=== PATIENT | female | born 1960 | race Caucasian/White ===

== ENCOUNTER 2023-01-12 08:11 | Outpatient (OUT) | payer OTHER, SELFPAY ==
[2023-01-12 09:11] LABS: Estimated Average Glucose 140 mg/dL; Glycohemoglobin A1C 6.5 % (4.5-6.2)
[2023-01-12 09:24] LABS: Anion Gap 10.5; BUN Creatinine Ratio 29.1; Calcium 9.7 mg/dL (8.5-10.1); Chloride 103 mmol/L (98-107); Estimated GFR (African America >60 (>=60); Estimated GFR (Non-African Ame >60 (>=60); Glucose 138 mg/dL (74-106); Potassium 5.5 mmol/L (3.5-5.1); Sodium 137 mmol/L (136-145); Thyroid Stimulating Hormone 10.291 uIU/mL (0.358-3.740)
== END 2023-01-12 08:12 | disposition home or self-care (01) ==
LOC: LAB 08:11
PROVIDERS: PCP Family Medicine; Visit Provider Family Medicine
DX: I10 Essential (primary) hypertension (principal); E11.9 Type 2 diabetes mellitus without complications; E05.00 Thyrotoxicosis with diffuse goiter without thyrotoxic crisis or storm
CPT/HCPCS: 36415; 80048; 83036; 84439; 84443

== ENCOUNTER 2023-05-21 00:53 | Emergency (ER) | payer OTHER, SELFPAY ==
[2023-05-21] VITALS (7 sets, daily range): BP systolic 166–180; BP diastolic 86–100; PULSE 73–111; RESP 13–22; TEMP 36.6; O2SAT 94–97
--- NOTE | 2023-05-21 01:12 | ED.URI1 ---
HPI - URI/Sore Throat General Chief Complaint: Upper Respiratory Infection Stated Complaint: ABD/BACK PAIN flu like symptoms Time Seen by Provider: 05/21/23 01:09 Source: patient Limitations: no limitations History of Present Illness HPI Narrative: patient states she was seen at urgent care this past weekend and diagnosed with Influenza. History of COPD and still smoking. complains of frequent cough that is dry. Her chest is sore from coughing. No fever Related Data Home Medications Medication Instructions Recorded Confirmed albuterol sulfate 2.5 mg/3 mL mg 05/21/23 (0.083 %) solution for nebulization atorvastatin 10 mg tablet mg 05/21/23 budesonide-formoterol HFA 160 inhalation 05/21/23 mcg-4.5 mcg/actuation aerosol inhaler calcium carbonate 500 mg-vitamin tab 05/21/23 D3 5 mcg (200 unit) tablet (Oysco 500/D) doxycycline hyclate 100 mg tablet mg 05/21/23 lisinopril 20 mg tablet mg 05/21/23 metformin 500 mg tablet mg 05/21/23 methimazole 10 mg tablet mg 05/21/23 montelukast 10 mg tablet mg 05/21/23 prednisone 20 mg tablet mg 05/21/23 semaglutide 0.25 mg or 0.5 mg (2 mg subcut 05/21/23 mg/3 mL) subcutaneous pen injector (Ozempic) Allergies Allergy/AdvReac Type Severity Reaction Status Date / Time No Known Drug Allergies Allergy Verified 05/21/23 01:02 Review of Systems ROS Status of ROS 10 or more systems reviewed and unremarkable except as noted in history and below PFSH PFSH Social History Smoking status: Current some day smoker Exam Constitutional Vital Signs, click to edit/add: Last Vital Signs Temp 97.9 F 05/21/23 00:57 Pulse 73 05/21/23 01:43 Resp 20 05/21/23 01:43 BP 166/86 H 05/21/23 01:31 Pulse Ox 97 05/21/23 01:48 O2 Del Method Room Air 05/21/23 01:48 Common normals: no apparent distress, average body habitus, oriented x3, no limitations, healthy appearing, alert and well nourished Eye Common normals: EOMs intact bilaterally and conjunctivae normal Chest Other: inferior chest wall tenderness bilat Respiratory Common normals: normal respiratory effort, no retractions, no use of accessory muscles and clear to auscultation bilaterally Other: diminished breath sounds Cardio Common normals: S1 normal heart sound and S2 normal heart sound Rate: tachycardic GI Common normals: Normal to inspection, nondistended, normoactive bowel sounds present, soft to palpation and non-tender Extremity Common normals: normal to inspection and full ROM Neuro Common normals: oriented x3, moves all extremities, no focal motor deficits and no sensory deficits noted Psych Appearance: grossly normal Course Vital Signs Vital signs: Vital Signs Temperature 97.9 F 05/21/23 00:57 Pulse Rate 111 H 05/21/23 00:57 Respiratory Rate 22 05/21/23 00:57 Blood Pressure 180/100 H 05/21/23 00:57 Pulse Oximetry 95 05/21/23 00:57 Oxygen Delivery Method Room Air 05/21/23 00:57 Temperature 97.9 F 05/21/23 00:57 Pulse Rate 73 05/21/23 01:43 Respiratory Rate 20 05/21/23 01:43 Blood Pressure 166/86 H 05/21/23 01:31 Pulse Oximetry 97 05/21/23 01:48 Oxygen Delivery Method Room Air 05/21/23 01:48 MDM - URI/Sore Throat MDM Narrative Medical decision making narrative: history of COPD diagnosed with influenza yesterday. Presents with repetitive cough and chest pain. chest pain worse with deep breath and with cough. Chest wall tender reproducing pain. cxray clear. labs neg. Patient improved after solumedrol, duoneb and [place]. discharged home in improved condition Lab Data Labs: Lab Results 05/21/23 Range/Units 01:05 WBC 9.7 (4.0-11.0) 10^3/uL RBC 4.24 (4.20-5.40) 10^6/uL Hgb 13.3 (12.0-16.0) g/dL Hct 41.1 (36.0-48.0) % MCV 96.9 (81.0-99.0) fL MCH 31.4 (26.7-34.0) pg MCHC 32.4 (29.9-35.2) g/dL RDW 12.4 (11.0-15.0) % Plt Count 225 (150-450) 10^3/uL MPV 10.0 (9.5-13.5) fL Neut % (Auto) 78.1 H (43.0-75.0) % Lymph % (Auto) 12.9 L (20.5-60.0) % [place] % (Auto) 8.3 (1.7-12.0) % Eos % (Auto) 0.0 L (0.9-7.0) % Baso % (Auto) 0.2 (0.2-2.0) % Neut # (Auto) 7.6 H (1.4-6.5) 10^3/uL Lymph # (Auto) 1.3 (1.2-3.8) 10^3/uL [place] # (Auto) 0.8 (0.3-0.8) 10^3/uL Eos # (Auto) 0.0 (0.0-0.7) 10^3/uL Baso # (Auto) 0.0 (0.0-0.1) 10^3/uL Abs Immat Gran (auto) 0.05 H (0.00-0.03) 10^3/uL Imm/Tot Granulo (auto) 0.5 (0.0-0.5) % Sodium 141 (136-145) mmol/L Potassium 4.4 (3.5-5.1) mmol/L Chloride 104 (98-107) mmol/L Carbon Dioxide 29.7 (21.0-32.0) mmol/L Anion Gap 11.7 BUN 20.0 H (7.0-18.0) mg/dL Creatinine 0.92 (0.55-1.02) mg/dL Est GFR ( Amer) >60 (>=60) Est GFR (Non-Af Amer) >60 (>=60) BUN/Creatinine Ratio 21.7 Glucose 169 H (74-106) mg/dL Calcium 9.4 (8.5-10.1) mg/dL Troponin I High Sens 14.2 (4.0-51.3) pg/mL Imaging Data Chest x-ray: Radiologist's impression: ITS Impressions Chest X-Ray 05/21/23 01:15 IMPRESSION: Lungs are clear. No acute cardiopulmonary disease. Electronically authenticated by: VANNA HENNESSY Date: 05/21/2023 03:54 Discharge Plan Discharge Chief Complaint: Upper Respiratory Infection Clinical Impression: Chest wall pain, Influenza Patient Disposition: Home, Self-Care Prescriptions / Home Meds: No Action metformin 500 mg tablet albuterol sulfate 2.5 mg /3 mL (0.083 %) solution for nebulization atorvastatin 10 mg tablet lisinopril 20 mg tablet prednisone 20 mg tablet montelukast 10 mg tablet methimazole 10 mg tablet doxycycline hyclate 100 mg tablet calcium carbonate-vitamin D3 [Oysco 500/D] 500 mg-5 mcg (200 unit) tablet budesonide-formoterol 160-4.5 mcg/actuation HFA aerosol inhaler INHALATION Ozempic 0.25 mg or 0.5 mg (2 mg/3 mL) pen injector SUBCUT Instructions: Influenza (DC), Chest Wall Pain (ED) Stand Alone Forms: Portal Instructions Referrals: EVANGELIST SALEEM [Primary Care Provider] - 1 week
--- NOTE | 2023-05-21 01:15 | ECG_ITS ---
The [facility] Test Date: 2023-05-21 Pat Name: MIKI GARCIA Department: Room: - Gender: Female [employer]: : 1960 Requested By: EVANGELIST SALEEM Order Number: [id number] Reading MD: RADHA RILEY Measurements Intervals [place] Rate: 81 P: 90 MD: 122 QRS: 80 QRSD: 80 T: 76 QT: 356 QTc: 394 Interpretive Statements 1100 Sinus rhythm 9110 normal ECG Compared to ECG 01/15/2021 10:22:37 No significant changes Electronically Signed On 05-21-2023 6:55:28 EST by RADHA RILEY
--- NOTE | 2023-05-21 01:15 | XR_ITS ---
The [address] [address] Patient Name: MIKI GARCIA MRN: [id number] date: 1960 Sex: F Assigned Patient Location: ER Current Patient Location: ED.MAIN Accession/Order Number: [id number] Exam Date: 05/21/2023 01:30 Report Date: 05/21/2023 03:54 At the request of: MELITA SORENSON Procedure: XR chest 1V EXAMINATION: XR chest 1V HISTORY: cough COMPARISON: None. FINDINGS: There is no focal airspace consolidation. There is no appreciable pneumothorax or pleural effusion. The pulmonary vascularity is within normal limits for technique. The cardiomediastinal silhouette is within normal limits. XR/XR chest 1V IMPRESSION: Lungs are clear. No acute cardiopulmonary disease. Electronically authenticated by: VANNA HENNESSY Date: 05/21/2023 03:54
[2023-05-21 01:21] LABS: Basophils Percent Auto 0.2 % (0.2-2.0); Hematocrit 41.1 % (36.0-48.0); Hemoglobin 13.3 g/dL (12.0-16.0); Immature Granulocytes Abs Auto 0.05 10^3/uL (0.00-0.03); Immature Granulocytes Pct Auto 0.5 % (0.0-0.5); Lymphocytes Absolute Auto 1.3 10^3/uL (1.2-3.8); Lymphocytes Percent Auto 12.9 % (20.5-60.0); Mean Corpuscular HGB Conc 32.4 g/dL (29.9-35.2); Mean Corpuscular Hemoglobin 31.4 pg (26.7-34.0); Mean Corpuscular Volume 96.9 fL (81.0-99.0); Monocytes Absolute Auto 0.8 10^3/uL (0.3-0.8); Monocytes Percent Auto 8.3 % (1.7-12.0); Neutrophils Absolute Auto 7.6 10^3/uL (1.4-6.5); Neutrophils Percent Auto 78.1 % (43.0-75.0); Platelet Count 225 10^3/uL (150-450); Red Blood Count 4.24 10^6/uL (4.20-5.40); Red Cell Distribution Width 12.4 % (11.0-15.0); White Blood Count 9.7 10^3/uL (4.0-11.0)
[2023-05-21] MEDS: METHYLPREDNISOLONE SOD SUCC PF 125 MG/2 ML VIAL IVP (01:27)
[2023-05-21] MEDS: KETOROLAC TROMETHAMINE 30 MG/ML VIAL IVP (01:28)
[2023-05-21 01:40] LABS: Anion Gap 11.7; BUN Creatinine Ratio 21.7; Calcium 9.4 mg/dL (8.5-10.1); Carbon Dioxide 29.7 mmol/L (21.0-32.0); Chloride 104 mmol/L (98-107); Estimated GFR (African America >60 (>=60); Estimated GFR (Non-African Ame >60 (>=60); Glucose 169 mg/dL (74-106); Potassium 4.4 mmol/L (3.5-5.1); Sodium 141 mmol/L (136-145); Troponin I High Sensitivity 14.2 pg/mL (4.0-51.3)
[2023-05-21] MEDS: IPRATROPIUM/ALBUTEROL SULFATE 3 ML AMPUL.NEB IH (01:43)
--- NOTE | 2023-05-21 02:05 | PC.NURSE ---
pt states toradol did not help pain, continues to cough which is making her almost throw up . Afia and asim ordered per dr domingo
[2023-05-21] MEDS: ONDANSETRON PF 4 MG/2 ML VIAL IV (02:14)
[2023-05-21] MEDS: HYDROCODONE/ACET 5-325 MG TABLET 1 TAB PO (02:14)
--- NOTE | 2023-05-21 03:18 | PC.NURSE ---
Still waiting on chest xray results, pt aware and verbalized understanding. Pt states she is feeling better, coughing less at this time.
--- NOTE | 2023-05-21 04:13 | PC.NURSE ---
Discussed discharge paperwork with pt. All questions answered. Script and work note provided. Pt ambulated off unit in stable condition.
== END 2023-05-21 04:14 | disposition home or self-care (01) ==
PROVIDERS: Emergency Provider Internal Medicine; PCP Family Medicine
DX: R07.89 Other chest pain (principal); J11.1 Influenza due to unidentified influenza virus with other respiratory manifestations; J44.9 Chronic obstructive pulmonary disease, unspecified; F17.210 Nicotine dependence, cigarettes, uncomplicated; Z79.899 Other long term (current) drug therapy; Z79.84 Long term (current) use of oral hypoglycemic drugs
CPT/HCPCS: 36415; 71045; 80048; 84484; 85025; 93005; 94640; 96374; 96375; 99285; J1885; J2405; J2930

== ENCOUNTER 2024-05-05 09:29 | Emergency (ER) | payer OTHER, SELFPAY ==
[2024-05-05] VITALS (17 sets, daily range): BP systolic 138–166; BP diastolic 86–98; PULSE 81–103; TEMP 36.5; O2SAT 93–97; BMI 27.4
[2024-05-05 09:38] LABS: Glucometer 395 mg/dL (74-106)
--- NOTE | 2024-05-05 09:48 | XR_ITS ---
The [address] [address] Patient Name: MIKI GARCIA MRN: [id number] date: 1960 Sex: F Assigned Patient Location: ER Current Patient Location: ER Accession/Order Number: [id number] Exam Date: 05/05/2024 10:15 Report Date: 05/05/2024 10:58 At the request of: ALMA MEADE Procedure: XR chest 2V EXAMINATION: XR chest 2V HISTORY: cough COMPARISON: XR chest 05/21/2023 FINDINGS: LUNGS: No significant pulmonary parenchymal abnormalities. VASCULATURE: No increased pulmonary vasculature. PLEURA: No pneumothorax, effusion, or pleural thickening. CARDIAC: No cardiomegaly or cardiac silhouette abnormality. MEDIASTINUM: No visible mass or adenopathy. BONES: No fracture or visible bone lesion. OTHER: Negative. XR/XR chest 2V IMPRESSION: 1. No acute cardiopulmonary process. Electronically authenticated by: LIMA TAMEZ Date: 05/05/2024 10:58
--- NOTE | 2024-05-05 09:50 | ED_ITS ---
HPI HPI - General Adult General Chief complaint: Upper Respiratory Infection Stated complaint: HYPERGLYCEMIA Time Seen by Provider: 05/05/24 09:30 Source: patient Mode of arrival: walk-in History of Present Illness HPI narrative: Patient presented to the emergency department for not feeling well she has been sick with an upper respiratory infection. Has had cough, nasal congestion, rhinorrhea, sore throat, hoarse voice. She states she has been trying to fight through it. Has diabetes, takes metformin, checks her blood sugars daily. Woke up this morning and it was 595. She went to urgent care for her after respiratory infection, but because her blood sugar was 500 there they sent her here. It was checked here in the ER and is currently 395. Patient has no complaints of chest pain, shortness of breath, blurry vision, double vision, urgency, increasing urinary frequency. No other complaints at this time Related Data Home Medications ?Medication ?Instructions ?Recorded ?Confirmed albuterol sulfate 2.5 mg/3 mL 2.5 mg inhalation Q4H PRN 05/21/23 05/05/24 (0.083 %) solution for nebulization shortness of breath or wheezing atorvastatin 10 mg tablet 10 mg PO DAILY 05/21/23 05/05/24 budesonide-formoterol HFA 160 inhalation 05/21/23 mcg-4.5 mcg/actuation aerosol inhaler calcium 500 mg (as 1 tab PO DAILY 05/21/23 05/05/24 carbonate)-vitamin D3 5 mcg (200 unit) tablet (Oysco 500/D) methimazole 10 mg tablet 10 mg PO DAILY 05/21/23 05/05/24 montelukast 10 mg tablet 10 mg PO DAILY 05/21/23 05/05/24 dapagliflozin propanediol 10 mg 10 mg PO DAILY 05/05/24 05/05/24 tablet fluticasone fur. 200 mcg-umeclid 1 inh inhalation QAM 05/05/24 05/05/24 62.5 mcg-vilant 25 mcg inhalat.powder (Trelegy Ellipta) lisinopril 40 mg tablet 40 mg PO DAILY 05/05/24 05/05/24 metformin 500 mg tablet,extended 500 mg PO BID 05/05/24 05/05/24 release 24 hr pantoprazole 40 mg tablet,delayed 40 mg PO DAILY 05/05/24 05/05/24 release Allergies Allergy/AdvReac Type Severity Reaction Status Date / Time No Known Drug Allergies Allergy Verified 05/21/23 01:02 Opioid HPI Opioid Management Most Recent Opioid Data: Last Pain Scale 10 05/21/23 01:28 05/21/23 Review of Systems ROS Narrative Negative unless otherwise stated in the HPI [facility] Medical History (Updated 05/05/24 @ 12:04 by Reddy Castro MD) High cholesterol ?E78.00 - Pure hypercholesterolemia, unspecified (ICD-10) HTN (hypertension) ?I10 - Essential (primary) hypertension (ICD-10) Smoker ?F17.200 - Nicotine dependence, unspecified, uncomplicated (ICD-10) COPD (chronic obstructive pulmonary disease) ?J44.9 - Chronic obstructive pulmonary disease, unspecified (ICD-10) Diabetic acetonemia ?E10.10 - Type 1 diabetes mellitus with ketoacidosis without coma (ICD-10) Social History Smoking status: Current some day smoker Little interest or pleasure in doing things: not at all Feeling down, depressed, or hopeless: not at all Exam Narrative Exam Narrative: General: NAD, AAOx3, no distress Eyes: PERRL, EOMI, lids/conjunctiva normal. HEENT: NCAT, mmm, rhinorrhea with nasal mucosal edema was noted, hoarse voice was noted Neck: Supple, no drooling, no bruit, no lymphadenopathy Respiratory: respiratory effort normal, speaks in full sentences, no tripod position, no accessory muscle use. Lungs clear to auscultation without rhonchi, wheezes, rales Cardiac: Regular rate and rhythm, no edema, regular s1/s2, no m/g/r Skin: Warm, pink and dry Constitutional Vital Signs, click to edit/add: Last Vital Signs Temp 97.7 F 05/05/24 09:32 Pulse 81 05/05/24 11:27 Resp 16 05/05/24 11:27 BP 166/98 H 05/05/24 09:32 Pulse Ox 96 05/05/24 11:27 O2 Del Method Room Air 05/05/24 11:27 Course Vital Signs Vital signs: Vital Signs Temperature 97.7 F 05/05/24 09:32 Pulse Rate 103 H 05/05/24 09:32 Respiratory Rate 22 H 05/05/24 09:32 Blood Pressure 166/98 H 05/05/24 09:32 Pulse Oximetry 95 05/05/24 09:32 Oxygen Delivery Method Room Air 05/05/24 09:32 Temperature 97.7 F 05/05/24 09:32 Pulse Rate 81 05/05/24 11:27 Respiratory Rate 16 05/05/24 11:27 Blood Pressure 166/98 H 05/05/24 09:32 Pulse Oximetry 96 05/05/24 11:27 Oxygen Delivery Method Room Air 05/05/24 11:27 Medical Decision Making MDM Narrative Medical decision making narrative: [facility] Patient with history as above presented with upper respiratory infection, hyper glycemia. History obtained from patient. Patient was nontoxic, stable. Ambulatory. Exam as above. Independently reviewed imaging. Reviewed external records. Differential diagnosis considered. Overall presentation is consistent with glycemia, URI, viral Patient presenting to the emergency department for above-stated complaint. Patient states she incidentally noted that her blood sugar was 600. Had no chest pain, shortness of breath, nausea, vomiting. No recent illnesses other than the viral URI. No recent steroid usage. Blood sugar in the ED was 395, came down to 350. Patient has no signs or symptoms of hyperglycemia, DKA. Is on metformin. Discussed patient she should call her PCP, may potentially increase metformin medication, may need to be on insulin at some point. As for her other illnesses, chest x-ray and swab were negative. It was noted while she was here she did require breathing treatment. Will hold steroids. Given the hyperglycemia. Patient has COPD, states that she takes breathing treatments multiple times daily at home, has enough medications and refill. Pt who presented to the ER today for URI symptoms. Patient on exam was well appearing and non toxic appearing. Vitals were reviewed. Patient has no symptoms of otitis media, pneumonia, bacterial pharyngitis or other serious bacterial illness. Respiratory status is unremarkable. At this point in time, patient likely has viral syndrome with no indications for antibiotics. I have recommended fluids and motrin for symptomatic control. Close follow up with PCP. Advanced guidance has been given. Vss, pex is benign at this time. Pt to fu with pcp 1-2 days for reeval, rter should sx worsen, persist or become worrysome in any way. Pt expressed understanding and agreement with plan of care at this time. Will fu as planned. Pt stable for discharge. Lab Data Labs: Lab Results 05/05/24 05/05/24 05/05/24 Range/Units 09:37 09:59 11:15 Influenza Type A Ag Negative Influenza Type B Ag Negative RSV Antigen Not detected (NOT DETECTE) SARS-CoV-2 Ag (CV2AG) Negative (NEGATIVE) POC Glucose 395 H 359 H (74-106) mg/dL Discharge Plan Discharge Chief Complaint: Upper Respiratory Infection Clinical Impression: Upper respiratory infection Patient Disposition: Home, Self-Care Time of Disposition Decision: 12:03 Prescriptions / Home Meds: No Action albuterol sulfate 2.5 mg /3 mL (0.083 %) solution for nebulization 2.5 mg inhalation Q4H PRN (Reason: shortness of breath or wheezing) atorvastatin 10 mg tablet 10 mg PO DAILY montelukast 10 mg tablet 10 mg PO DAILY methimazole 10 mg tablet 10 mg PO DAILY calcium carbonate-vitamin D3 [Oysco 500/D] 500 mg-5 mcg (200 unit) tablet 1 tab PO DAILY budesonide-formoterol 160-4.5 mcg/actuation HFA aerosol inhaler INHALATION dapagliflozin propanediol 10 mg tablet 10 mg PO DAILY Trelegy Ellipta 200-62.5-25 mcg blister with device 1 inh INHALATION QAM lisinopril 40 mg tablet 40 mg PO DAILY metformin 500 mg tablet extended release 24 hr 500 mg PO BID pantoprazole 40 mg tablet,delayed release (DR/EC) 40 mg PO DAILY Print Language: Romansh Instructions: Upper Respiratory Infection (DC) Additional Instructions: Follow-up with your PCP in the next 1 to 2 days. Return to the emergency department should symptoms worsen or become worrisome in any way. Referrals: EVANGELIST SALEEM [Primary Care Provider] - 1 week
[2024-05-05] MEDS: 0.9 % SODIUM CHLORIDE 1,000 ML 1000 ML IV (10:08)
[2024-05-05 10:19] LABS: Influenza Virus A Antigen Negative; Influenza Virus B Antigen Negative; Internal Control Within Normal Limits; SARS-CoV-2 Ag NEGATIVE (NEGATIVE)
[2024-05-05 10:53] LABS: Internal Control Within Normal Limits; Respiratory Syncytial Virus Not Detected (NOT DETECTE)
[2024-05-05 11:17] LABS: Glucometer 359 mg/dL (74-106)
[2024-05-05] MEDS: ALBUTEROL SULFATE 2.5 MG/3 ML VIAL NEB IH (11:26)
== END 2024-05-05 12:20 | disposition home or self-care (01) ==
PROVIDERS: Emergency Provider Emergency Medicine; PCP Family Medicine
DX: J06.9 Acute upper respiratory infection, unspecified (principal); E11.65 Type 2 diabetes mellitus with hyperglycemia; Z79.84 Long term (current) use of oral hypoglycemic drugs; F17.200 Nicotine dependence, unspecified, uncomplicated; J44.9 Chronic obstructive pulmonary disease, unspecified
CPT/HCPCS: 36415; 71046; 82948; 87420; 87804; 87811; 94640; 99284

== ENCOUNTER 2025-04-15 10:03 | Emergency (ER) | payer OTHER, SELFPAY ==
[2025-04-15 10:20] VITALS: BP 145/109; PULSE 92; TEMP 37.3; O2SAT 98; BMI 27.4
--- OUTSIDE RECORDS SUMMARY | 2025-04-15 11:42 | XMS_ITS | Encounter Summary ---
Author Organization [facility] [employer] Address [facility] [place]-[id number] [address] [place] [address] Care Team Providers Care Software Test Technician Name Role Phone Arielle Dickens OFFICE MESSENGER HELPER-MANAGER MARKET DEVELOPMENT Primary Care Provider + Reason for Visit * ReasonCommentsMed Refill Encounter Details DateTypeDepartmentCare Team (Latest Contact Info)Hcbzdxlfmax85/05/2025Refill [facility] [address] [place] [address] Arielle Dickens, OFFICE MESSENGER HELPER-MANAGER MARK[employer] DEVELOPMENT [address] [place] [address] Degeneration of intervertebral disc of lumbar region with lower extremity pain Social History Tobacco UseTypesPacks/DayYears UsedDateSmoking Tobacco: Every CxdAdjxfgfuxy212.8 Started: 05/12/1987; Last attempted to quit: 03/29/2024Smokeless Tobacco: Never Comments:Is down to 1/2 PPD since 06/2022 but smoked 1.5 PPD for years Alcohol UseStandard Drinks/WeekCommentsYes0 (1 standard drink = 0.6 oz pure alcohol)OccasionalAHC UtilitiesAnswerDate RecordedIn the past 12 months has the electric, gas, oil, or water company threatened to shut off services in your home?No06/02/2024Social Connection and Isolation PanelAnswerDate RecordedIn a typical week, how many times do you talk on the phone with family, friends, or neighbors?More than three times a week01/24/2023How often do you get together with friends or relatives?Twice a week01/24/2023How often do you attend islam or episcopalian services?Never01/24/2023o you belong to any clubs or organizations such as islam groups, unions, fraternal or athletic groups, or school groups?No 01/24/2023How often do you attend meetings of the clubs or organizations you belong to?Never01/24/2023re you , , , , never , or living with a partner?Gnlaner1001/24/2023UDIT-CAnswerDate RecordedQ1: How often do you have a drink containing alcohol?2-4 times a month06/02/2024Q2: How many drinks containing alcohol do you have on a typical day when you are drinking?3 or Q3: How often do you have six or more drinks on one occasion?Never06/02/2024Overall Financial Resource Strain (CARDIA)AnswerDate RecordedHow hard is it for you to pay for the very basics like food, housing, medical care, and heating?Not hard at all01/24/2023HQ-2AnswerDate RecordedTotal [facility]ajjs575[facility] - Occupational Stress QuestionnaireAnswerDate RecordedDo you feel stress - tense, restless, nervous, or anxious, or unable to sleep at night because yourmind is troubled all the time - these days?Not at all01/24/2023Exercise Vital SignAnswerDate RecordedOn average, how many days per week do you engage in moderate to strenuous exercise (like a brisk walk)?4 days01/24/2023On average, how many minutes do you engage in exercise at this level?60 min01/24/2023RAPARE - TransportationAnswerDate RecordedIn the past 12 months, has lack of transportation kept you from medical appointments or from getting medications?No01/24/2023In the past 12 months, has lack of transportation kept you from meetings, work, or from getting things needed for daily living?01/24/2023Housing InstabilityAnswerDate RecordedAre you worried or concerned that in the next two months you may not have stable housing that you own, rent or stay in as a part of a household?No01/24/2023 ChildcareAnswerDate RecordedDo problems getting childcare center director make it 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 work or study?No01/24/2023EmploymentAnswerDate RecordedDo you need help finding a local career center and/or a training program?No01/24/2023Hunger ScreeningAnswerDate RecordedWithin the past 12 months we worried whether our food would run out before we got money to buy more.Never True02/11/2025Within the past 12 months the food we bought just didn't last and we didn't have money to get more.Never True02/11/2025Purpose - LifeAnswerDate RecordedI have a purpose and direction in my life.Strongly Agree01/24/2023CommentsNoSex and Gender InformationValueDate RecordedSex Assigned at BirthNot on fileLegal VcyCwqyyr78/06/2015 11:50 AM EDTGender IdentityNot on fileSexual OrientationNot on filedocumented as of this encounter Plan of Treatment DateTypeDepartmentCare Team (Latest Contact Info)Cuqrhqpyhuk44/22/2025 1:45 PM ESTOffice Visit [facility] [address] [place] [address] Inder Frankel, [address] [facility] [place] [address] documented as of this encounter Visit Diagnoses Diagnosis Degeneration of intervertebral disc of lumbar region with lower extremity pain documented in this encounter Additional Health Concerns AssessmentNoted TimePHQ-9 Depression Total Score: 11:45 AM EDTA Body Mass Index follow-up plan has been documented for the sekrgup1110/22/2024 4:47 PM EDTdocumented as of this encounter Care Teams Team MemberRelationshipSpecialtyStart DateEnd Date Arielle Dickens, OFFICE MESSENGER HELPER-MANAGER MARKET DEVELOPMENT [address] [facility] [place] [address] PCP - GeneralFamily Medicine12/14/24documented as of this encounter
--- OUTSIDE RECORDS SUMMARY | 2025-04-15 11:42 | XMS_ITS | Clinical Summary ---
Author Organization [facility] Address [address] [place] [address] Care Team Providers Care Orthodontist Name Role Phone Chino Phillips MD Primary Care Provider [phone] Maria Del Rosario Johnson MD Unavailable [phone] Allergies No known active allergies Medications MedicationSigDispense QuantityRefillsLast FilledStart DateEnd DateStatus Trelegy Ellipta 200-62.5-25 MCG/ACT aerosol powder Active escitalopram (Lexapro) 10 MG tablet 1 (one) time each day at the same timeActive hydroCHLOROthiazide (HYDRODiuril) 25 MG tablet 1 (one) time each day at the same timeActive Insulin Glargine Max SoloStar 300 UNIT/ML solution pen-injector Inject 20 Units under the skin at /07/2025Active Easy Touch Pen [place] 31G X 6 MM misc 5Active levothyroxine (Synthroid, Levoxyl) 25 MCG tablet 1 (one) time each day at the same timeActive lisinopril 40 MG tablet Take 40 mg by mouth4Active metFORMIN (Glucophage) 500 MG tablet Take 500 mg by mouth 1 (one) time each day at the same time 2 TABS IN THE AM Active montelukast (Singulair) 10 MG tablet Take 10 mg by mouth in the morning.4Active nicotine (Nicotine Step 2) 14 MG/24HR patch 1 (one) time each day at the same timeActive pantoprazole (ProtoNix) 40 MG EC tablet Take 40 mg by mouth in the morning.4Active famotidine (Pepcid) 20 MG tablet Indications:LPRD (laryngopharyngeal reflux disease)Take 1 tablet (20 mg) by mouth at bedtime 90 tablet 5Active gabapentin (Neurontin) 300 MG capsule Take 300 mg by mouth as needed at rqwiags30/03/2025Active dapagliflozin (Farxiga) 10 MG Take 10 mg by mouth DailyActive atorvastatin (Lipitor) 10 MG tablet Take 10 mg by mouth DailyActive Active Problems ProblemNoted DateDiagnosed DateAcquired dedilicluuimuk42/17/2025ilateral xbveekgx90/17/2025Infection of parotid gland06/15/2024Laryngopharyngeal reflux (LPR)06/15/2024Multinodular eneulu7506/15/2024Sensorineural hearing loss, gghrthoep66/17/2025Sensorineural hearing loss, unilateral, right ear, with unrestricted hearing on the contralateral side06/15/2024Mixed simple and mucopurulent chronic quhyoxlenz74/30/2022olyp of sigmoid colon01/31/2022 Abnormal liver function tests01/25/2022bnormal stool test01/25/2022 Overview (06/15/2024): Cologard positive Degeneration of lumbar intervertebral disc01/25/2022Graves' hthtuyr2001/25/2022 Nicotine mbnpmghujk29/29/2022Urinary nqvslwukecen75/29/2022hronic antral jbvvoeiif51/11/5751Rjhhnjidzp12/11/2019Chronic gastroesophageal reflux disease 12/26/2018Mild nonproliferative diabetic ijlwoyvaxxp11/11/2017Chronic airway egfpbyciooy14/12/2014Essential bvrbzuhrugby18/12/3602Nzoquvfupvlrse42/12/2014 Type 2 diabetes fvzjtrxu42/12/2014 Encounters DateTypeDepartmentCare NcziOjqloggecli30/20/2025Orders Only [facility] [address] [place] [address] Maria Del Rosario Johnson MD from Last 3 Months Immunizations ImmunizationAdministration DatesNext VooUPbH39/07/2013Influenza, injectable, quadrivalent, preservative free02/28/2016Influenza, seasonal, injectable 01/27/2015Influenza, seasonal, injectable, preservative free01/17/2024 Pneumococcal Conjugate PCV 131Pneumococcal Conjugate PCV Pneumococcal Polysaccharide OKJW0645 Family History Medical HistoryRelationNameCommentsThyroid diseaseDaughterx 2AsthmaFather DiabetesFatherProstate cancerFatherRelationNameStatusCommentsBrotherx 1Deceased Daughterx 2AliveFatherAliveMotherDeceasedSisterx 1Deceased Social History Tobacco UseTypesPacks/DayYears UsedDateSmoking Tobacco: Every DayCigarettes Smokeless Tobacco: Never Tobacco Cessation:Ready to Q uit: Not Asked; Counseling Given: Not Answered Alcohol UseStandard Drinks/WeekCommentsYes0 (1 standard drink = 0.6 oz pure alcohol)OccCommentsUnknownSex and Gender InformationValueDate Recorded Sex Assigned at BirthNot on fileLegal EyiAimiij87/15/2023 7:00 PM EDTGender IdentityNot on fileSexual OrientationNot on file Last Filed Vital Signs Vital SignReadingTime TakenCommentsBlood Khbspgtw150/7004 1:20 PM EDT Mcsid1188 1:20 PM EDTTemperature--Respiratory Qahr733108/19/2024 1:20 PM EDTOxygen Ewisdgckvn57%08/19/2024 1:20 PM EDTInhaled Oxygen Concentration-- Sxfyzz66.8 kg (156 lb)09/28/2024 1:39 PM OTVLiavuy022.5 cm (5' 2 )09/28/2024 1:39 PM EDTBody Mass Index28.53009/28/2024 1:39 PM EDT Plan of Treatment DateTypeDepartmentCare Team (Latest Contact Info)Junrrpbpjyj42/22/2026 1:30 PM ESTOffice Visit [facility] [address] [place] [address] Maria Del Rosario Johnson MD [address] [place] [address] Health MaintenanceDue DateLast DoneCommentsCT Emsgfeperdye47/24/1962Colonoscopy 2Colorectal Cancer Mnlpbjcsm14/24/1962FIT-DNA1961FIT1961 FOBT1961 0298Ammelqwkvhohz20/24/1962Diabetes: Retinopathy Tyjkditta16/24/1972 Pap Smear1982Cervical Cancer Djdpdryji75/24/1992HPV/Qknhlb8210/21/1991 Diabetes: Hemoglobin A1C504/, 01/03/2024OVID-19 Vaccine ( season), 12/28/2020Influenza Vaccine (#1)2024 01/17/2024, 02/28/2016, 01/27/2015Diabetes: Urine Protein Gmsnorizk74/26/2025 04/23/2024, 04/23/2024, 01/24/20234621Prixgtctu19Pneumococcal Vaccine: Pediatrics (0 to 5 Years) and At-Risk Patients (6 to 64 Years)Completed 04/23/2024, 02/02/2013, 02/02/2013 Procedures Procedure NamePriorityDate/TimeAssociated DiagnosisCommentsPOCT GLYCOSYLATED HEMOGLOBIN (HGB A1C)Umzyunz3308/19/2024 1:26 PM EDT Type 2 diabetes mellitus with hyperglycemia, without long-term current use of insulin (HCC) from Last 3 Months or Most Recently Relevant to Health Maintenance Results * POCT glycosylated hemoglobin (Hb A1C) docked device (08/19/2024 1:26 PM EDT) ComponentValueRef RangeTest MethodAnalysis TimePerformed AtPathologist SignatureHemoglobin A1C8.5Specimen (Source)Anatomical Location / Laterality Collection Method / VolumeCollection TimeReceived TimeBloodVenous blood specimen / Vqyvtur6808/19/2024 1:26 PM EDT Narrative Authorizing ProviderResult TypeResult StatusMaria Del Rosario Johnson MDPOINT OF CARE TEST ENTER/EDIT ORDERABLESFinal Result from Last 3 Months or Most Recently Relevant to Health Maintenance Insurance Care Teams Team MemberRelationshipSpecialtyStart DateEnd Date Chino Phillips MD [address] [facility], [place] [address] PCP - GeneralFamily Medicine06/03/24 Maria Del Rosario Johnson MD [address], [address] [place] [address] PCP - Medical [employer]07/29/2311
--- OUTSIDE RECORDS SUMMARY | 2025-04-15 11:43 | XMS_ITS | Encounter Summary ---
Author Organization [facility] Address [id number] [address] [place] [address] Care Team Providers Care Layout Designer Name Role Phone Arielle Dickens SITE SUPERINTENDENT-PRESCRIPTION EYEGLASS MAKER Primary Care Provider + Encounter Details DateTypeDepartmentCare Team (Latest Contact Info)Xjqlaaxwpfs29/08/2025Orders Only [facility] [address] [place] [phone] Arielle Dickens, SITE SUPERINTENDENT-PRESCRIPTION EYEGLASS MAKER [address] [place] [address] Social History Tobacco UseTypesPacks/DayYears UsedDateSmoking Tobacco: Every LnbOdzieigiyf204.8 Started: 05/12/1987; Last attempted to quit: 03/29/2024Smokeless Tobacco: Never Comments:Is down to 1/2 PPD since 06/2022 but smoked 1.5 PPD for years Alcohol UseStandard Drinks/WeekCommentsYes0 (1 standard drink = 0.6 oz pure alcohol)OccasionalAHC UtilitiesAnswerDate RecordedIn the past 12 months has the [place], gas, oil, or water [employer] threatened to shut off services in your home?No06/02/2024Social Connection and Isolation PanelAnswerDate RecordedIn a typical week, how many times do you talk on the phone with family, friends, or neighbors?More than three times a week01/24/2023How often do you get together with friends or relatives?Twice a week01/24/2023How often do you attend anabaptist or restorationist services?Never01/24/2023o you belong to any clubs or organizations such as anabaptist groups, unions, fraternal or athletic groups, or school groups?No 01/24/2023How often do you attend meetings of the clubs or organizations you belong to?Never01/24/2023re you , , , , never , or living with a partner?Muzosbd1801/24/2023UDIT-CAnswerDate RecordedQ1: How often do you have a [...] care, and heating?Not hard at all01/24/2023HQ-2AnswerDate RecordedTotal Ghvan579Finhighland ridge hospital [place] of Occupational Health - Occupational Stress QuestionnaireAnswerDate [...] of a household?No01/24/2023 ChildcareAnswerDate RecordedDo problems getting child and adolescent psychiatrist make it 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 work [...] InformationValueDate RecordedSex Assigned at BirthNot on fileLegal SkmJumxhi66/06/2015 11:50 AM EDTGender IdentityNot on fileSexual OrientationNot on filedocumented as of this encounter Progress Notes * TUNG Braswell - 04/05/2025 1:27 PM EST The OARRS/MAPPS database was reviewed today and found to be appropriate. No indication of medication diversion, or non compliance. TUNG Braswell 04/05/25 1327 documented in this encounter Plan of Treatment DateTypeDepartmentCare Team (Latest Contact Info)Bfzqyzlehyr16/22/2025 1:45 PM ESTOffice Visit [facility] [address] [place] [phone] Inder Frankel, [address] [place] [address] documented as of this encounter Visit Diagnoses Not on filedocumented in this encounter Additional Health Concerns AssessmentNoted TimePHQ-9 Depression Total Score: 11:45 AM EDTA Body Mass Index follow-up plan has been documented for the igpzccv9010/22/2024 4:47 PM EDTdocumented as of this encounter Care Teams Team MemberRelationshipSpecialtyStart DateEnd Date Arielle Dickens, SITE SUPERINTENDENT-PRESCRIPTION EYEGLASS MAKER [address] [place] [address] PCP - GeneralFamily Medicine12/14/24documented as of this encounter
--- OUTSIDE RECORDS SUMMARY | 2025-04-15 11:43 | XMS_ITS | Encounter Summary ---
Author Organization [facility] Address [id number] [address] [place] [address] Care Team Providers Care Automobile Body Repairer Helper Name Role Phone Arielle Dickens Joel LOUISN-TESTER PRINTED CIRCUIT BOARDS Primary Care Provider + Reason for Visit * ReasonOnset DateCommentsMed Yoawhn6104/08/2025 Encounter Details DateTypeDepartmentCare Team (Latest Contact Info)Nwwupgjwpho41/11/2025Refill [facility] [address] [place] [address] Amanda Jett CMA Degeneration of intervertebral disc of lumbar region with lower extremity pain Social History Tobacco UseTypesPacks/DayYears UsedDateSmoking Tobacco: Every OipTktwpupfji179.8 Started: 05/12/1987; Last attempted to quit: 03/29/2024Smokeless Tobacco: Never Comments:Is down to 1/2 PPD since 06/2022 but smoked 1.5 PPD for years Alcohol UseStandard Drinks/WeekCommentsYes0 (1 standard drink = 0.6 oz pure alcohol)OccasionalAHC UtilitiesAnswerDate RecordedIn the past 12 months has the ?, gas, oil, or water incuBET threatened to shut off services in your home?No06/02/2024Social Connection and Isolation PanelAnswerDate RecordedIn a typical week, how many times do you talk on the phone with family, friends, or neighbors?More than three times a week01/24/2023How often do you get together with friends or relatives?Twice a week01/24/2023How often do you attend latter-day or judaism services?Never01/24/2023o you belong to any clubs or organizations such as latter-day groups, unions, fraternal or athletic groups, or school groups?No 01/24/2023How often do you attend meetings of the clubs or organizations you belong to?Never01/24/2023re you , , , , never , or living with a partner?Tsbabtd2301/24/2023UDIT-CAnswerDate RecordedQ1: How often do you have a [...] care, and heating?Not hard at all01/24/2023HQ-2AnswerDate RecordedTotal Unbby039F[facility] [place] of Occupational Health - Occupational Stress QuestionnaireAnswerDate [...] a household?No01/24/2023 ChildcareAnswerDate RecordedDo problems getting child support case officer make it 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 work [...] InformationValueDate RecordedSex Assigned at BirthNot on fileLegal HvqXeqtca84/06/2015 11:50 AM EDTGender IdentityNot on fileSexual OrientationNot on filedocumented as of this encounter Plan of Treatment DateTypeDepartmentCare Team (Latest Contact Info)Hizojdmkklo92/22/2025 1:45 PM ESTOffice Visit [facility] [address] [place] [address] Inder Frankel, DO [address] [place] [address] documented as of this encounter Visit Diagnoses Diagnosis Degeneration of intervertebral disc of lumbar region with lower extremity pain documented in this encounter Additional Health Concerns AssessmentNoted TimePHQ-9 Depression Total Score: 11:45 AM EDTA Body Mass Index follow-up plan has been documented for the krpbmge1310/22/2024 4:47 PM EDTdocumented as of this encounter Care Teams Team MemberRelationshipSpecialtyStart DateEnd Date Arielle Dickens, TIMBER MANAGEMENT ASSISTANT-TESTER PRINTED CIRCUIT BOARDS [address] [place] [address] PCP - GeneralFamily Medicine12/14/24documented as of this encounter
--- OUTSIDE RECORDS SUMMARY | 2025-04-15 11:43 | XMS_ITS | Encounter Summary ---
Author Organization [facility] Address [id number] [address] [place] [address] Care Team Providers Care Fancy Wire Drawer Name Role Phone Arielle Dickens PRODUCT MANAGER-QUALITY TECH Primary Care Provider + Encounter Details DateTypeDepartmentCare Team (Latest Contact Info)Dxmrgwtmead72/12/2025Orders Only [facility] [address] [place] [address] Arielle Dickens, PRODUCT MANAGER-QUALITY TECH [address] [place] [address] Social History Tobacco UseTypesPacks/DayYears UsedDateSmoking Tobacco: Every LrfWhnsfbracf473.8 Started: 05/12/1987; Last attempted to quit: 03/29/2024Smokeless Tobacco: Never Comments:Is down to 1/2 PPD since 06/2022 but smoked 1.5 PPD for years Alcohol UseStandard Drinks/WeekCommentsYes0 (1 standard drink = 0.6 oz pure alcohol)OccasionalAHC UtilitiesAnswerDate RecordedIn the past 12 months has the [employer], gas, oil, or water [employer] threatened to shut off services in your home?No06/02/2024Social Connection and Isolation PanelAnswerDate RecordedIn a typical week, how many times do you talk on the phone with family, friends, or neighbors?More than three times a week01/24/2023How often do you get together with friends or relatives?Twice a week01/24/2023How often do you attend gnosticism or latter day services?Never01/24/2023o you belong to any clubs or organizations such as gnosticism groups, unions, fraternal or athletic groups, or school groups?No 01/24/2023How often do you attend meetings of the clubs or organizations you belong to?Never01/24/2023re you , , , , never , or living with a partner?Tlksxqq2601/24/2023UDIT-CAnswerDate RecordedQ1: How often do you have a [...] care, and heating?Not hard at all01/24/2023HQ-2AnswerDate RecordedTotal Zgtlo101[facility] [place] of Occupational Health - Occupational Stress QuestionnaireAnswerDate [...] of a household?No01/24/2023 ChildcareAnswerDate RecordedDo problems getting children's minister make it 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 work [...] InformationValueDate RecordedSex Assigned at BirthNot on fileLegal YkeRhctiy53/06/2015 11:50 AM EDTGender IdentityNot on fileSexual OrientationNot on filedocumented as of this encounter Plan of Treatment DateTypeDepartmentCare Team (Latest Contact Info)Pagnhgsgdxk68/22/2025 1:45 PM ESTOffice Visit [facility] [address] [place] [address] Inder Frankel, [address] [place] [address] documented as of this encounter Visit Diagnoses Not on filedocumented in this encounter Additional Health Concerns AssessmentNoted TimePHQ-9 Depression Total Score: 11:45 AM EDTA Body Mass Index follow-up plan has been documented for the qfoiwxx3110/22/2024 4:47 PM EDTdocumented as of this encounter Care Teams Team MemberRelationshipSpecialtyStart DateEnd Date Arielle Dickens, PRODUCT MANAGER-QUALITY TECH [address] [place] [address] PCP - GeneralFamily Medicine12/14/24documented as of this encounter
--- OUTSIDE RECORDS SUMMARY | 2025-04-15 11:43 | XMS_ITS | Encounter Summary ---
Author Organization [facility] Address [id number] [address] [place] [address] Care Team Providers Care Csr Technician Name Role Phone Arielle Dickens Joel LOUISN-CARROTER Primary Care Provider + Reason for Visit * ReasonOnset DateCommentsMed Aoeinc5604/08/2025 Encounter Details DateTypeDepartmentCare Team (Latest Contact Info)Tmrpnmcaapm00/09/2025Refill [facility] [address] [place] [address] Risa De Anda CMA Degeneration of intervertebral disc of lumbar region with lower extremity pain Social History Tobacco UseTypesPacks/DayYears UsedDateSmoking Tobacco: Every GfwOfckitvdhi316.8 Started: 05/12/1987; Last attempted to quit: 03/29/2024Smokeless Tobacco: Never Comments:Is down to 1/2 PPD since 06/2022 but smoked 1.5 PPD for years Alcohol UseStandard Drinks/WeekCommentsYes0 (1 standard drink = 0.6 oz pure alcohol)OccasionalAHC UtilitiesAnswerDate RecordedIn the past 12 months has the [place], gas, oil, or water [place] threatened to shut off services in your home?No06/02/2024Social Connection and Isolation PanelAnswerDate RecordedIn a typical week, how many times do you talk on the phone with family, friends, or neighbors?More than three times a week01/24/2023How often do you get together with friends or relatives?Twice a week01/24/2023How often do you attend mandaen or judaism services?Never3Do you belong to any clubs or organizations such as mandaen groups, unions, fraternal or athletic groups, or school groups?No 01/24/2023How often do you attend meetings of the clubs or organizations you belong to?Never01/24/2023re you , , , , never , or living with a partner?Gbzaswd1701/24/2023UDIT-CAnswerDate RecordedQ1: How often do you have a [...] care, and heating?Not hard at all01/24/2023HQ-2AnswerDate RecordedTotal Kblom238Finst. [facility] [place] of Occupational Health - Occupational Stress QuestionnaireAnswerDate [...] of a household?No01/24/2023 ChildcareAnswerDate RecordedDo problems getting early childhood education worker make it 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 work [...] InformationValueDate RecordedSex Assigned at BirthNot on fileLegal NkdKksfot83/06/2015 11:50 AM EDTGender IdentityNot on fileSexual OrientationNot on filedocumented as of this encounter Plan of Treatment DateTypeDepartmentCare Team (Latest Contact Info)Aceqqkshllo95/22/2025 1:45 PM ESTOffice Visit [facility] [address] [place] [address] Inder Frankel, DO [address] [place] [address] documented as of this encounter Visit Diagnoses Diagnosis Degeneration of intervertebral disc of lumbar region with lower extremity pain documented in this encounter Additional Health Concerns AssessmentNoted TimePHQ-9 Depression Total Score: 11:45 AM EDTA Body Mass Index follow-up plan has been documented for the htpukrh7010/22/2024 4:47 PM EDTdocumented as of this encounter Care Teams Team MemberRelationshipSpecialtyStart DateEnd Date Arielle Dickens, CLOTH PRINTING INSPECTOR-CARROTER [address] [place] [address] PCP - GeneralFamily Medicine12/14/24documented as of this encounter
--- OUTSIDE RECORDS SUMMARY | 2025-04-15 11:43 | XMS_ITS | Clinical Summary ---
Author Organization [email or web address] tem Address [id number] [address] [place] [address] Care Team Providers Care Research Soil Scientist Name Role Phone Chrissie Arielle Maldonado APRN-HYGIENE ASSISTANT Primary Care Provider + Allergies No known active allergies Medications MedicationSigDispense QuantityRefillsLast FilledStart DateEnd DateStatus aspirin 81 mg Indications:Type 2 diabetes mellitus without complication, without long-term current use of insulin ([facility])Take 1 tablet (81 mg total) by mouth in the morning. 150 tablet 3Active montelukast (SINGULAIR) 10 mg tablet take 1 tablet by mouth every day 90 tablet 4Active calcium carbonate-vitamin D3 (OYSCO 500/D) 500 mg(1,250mg) -200 units per tablet Take 1 tablet by mouth in the morning and 1 tablet in the evening. Take with meals. 180 tablet 4Active famotidine (PEPCID) 20 mg tablet Take 1 tablet (20 mg total) by mouth nightly.5Active hydroCHLOROthiazide (HYDRODIURIL) 25 mg tablet 1 (one) time each day at the same timeActive escitalopram (LEXAPRO) 10 mg tablet 1 (one) time each day at the same timeActive levothyroxine (SYNTHROID, LEVOTHROID) 50 MCG tablet Take 1 tablet (50 mcg total) by mouth in the morning. 90 tablet 5Active gabapentin (NEURONTIN) 300 mg capsule Indications:Pain in both lower extremitiesTAKE 1 CAPSULE(300 MG) BY MOUTH EVERY NIGHT NEEDED FOR DIABETIC NERVE PAIN 90 capsule 5Active dapagliflozin propanediol (FARXIGA) 10 mg tablet TAKE 1 TABLET(10 MG) BY MOUTH IN THE MORNING 90 tablet 5Active flash glucose sensor (FREESTYLE ALEXANDER 2 SENSOR) kit Apply 1 Unit topically every 14 (fourteen) days. 6 kit 5Active nystatin-triamcinolone (MYCOLOG II) cream Apply 1 Application topically in the morning and 1 Application before bedtime. 30 g 5Active albuterol (PROVENTIL,VENTOLIN) 2.5 mg /3 mL (0.083 %) nebulizer solution Indications:Simple chronic bronchitis ([facility])INHALE CONTENTS OF 1 VIAL(3ML) EVERY 4 HOURS NEEDED FOR WHEEZING 75 mL 5Active insulin glargine 300 unit/mL (TOUJEO SOLOSTAR U-300 INSULIN) 300 unit/mL (1.5 mL) insulin pen Inject 30 Units under the skin nightly. 4.5 mL 5Active gabapentin (NEURONTIN) 100 mg capsule Indications:Degeneration of intervertebral disc of lumbar region with lower extremity painTake 1 capsule (100 mg total) by mouth nightly. 30 capsule 5Active pen needle, diabetic (EASY TOUCH) 31 gauge x 1/4 needle USE 1 NEEDLE EVERY DAY WITH TOUJEO 100 each 5Active metFORMIN XR (GLUCOPHAGE XR) 500 mg 24 hr tablet TAKE 2 TABLETS(1000 MG) BY MOUTH DAILY WITH BREAKFAST 180 tablet 5Active pantoprazole (PROTONIX) 40 mg EC tablet TAKE 1 TABLET(40 MG) BY MOUTH IN THE MORNING 30 tablet 5Active atorvastatin (LIPITOR) 10 mg tablet TAKE 1 TABLET BY MOUTH DAILY 90 tablet 5Active lisinopriL (PRINIVIL,ZESTRIL) 40 mg tablet TAKE 1 TABLET(40 MG) BY MOUTH IN THE MORNING 90 tablet 5Active buPROPion XL (WELLBUTRIN XL) 150 mg 24 hr tablet TAKE 1 TABLET(150 MG) BY MOUTH EVERY MORNING 30 tablet 5Active ymqtzrvmfmm-rvkkpcmxp-bfexcuyc (TRELEGY ELLIPTA) 200-62.5-25 mcg blister with device INHALE 1 PUFF BY MOUTH IN THE MORNING 60 each 5Active evhgsqjhfib-uyxvjiyvp-bbnzoawa (TRELEGY ELLIPTA) 200-62.5-25 mcg blister with device INHALE 1 PUFF BY MOUTH IN THE MORNING 60 each Discontinued Active Problems ProblemNoted DateDiagnosed DateAcquired vcmrhjuzrfhquw04/17/2025ilateral sensorineural hearing loss06/15/2024Laryngopharyngeal reflux (LPR)06/15/2024 Mixed simple and mucopurulent chronic mgmsqjuifh57/30/2022olyp of sigmoid colon 01/31/2022Urinary mbfjbrwcogmx15/29/2022Nicotine wqcriueofj17/29/2022 Vkbtkyevybhnoh50/29/2022Graves' uepzexa4601/25/2022Essential hypertension 01/25/2022egeneration of lumbar intervertebral disc01/25/2022bnormal liver function tests01/25/2022bnormal stool test01/25/2022 Overview (01/25/2022): Cologard positive Slzsnwjnct15/11/2019Chronic antral lwjvmoawy68/11/2019Chronic gastroesophageal reflux awppxjv2612/26/2018Mild nonproliferative diabetic yninghozwmk20/11/2017Type 2 diabetes /13/2016 Resolved Problems ProblemNoted DateDiagnosed DateResolved DateMalignant tumor of urinary bladder /epressive dfqacbga99/ Encounters DateTypeDepartmentCare PgjtHxddjlgpqen03/12/2025Orders Only [facility] [address] [place] [address] Arielle Dickens APRN-HYGIENE ASSISTANT 04/08/2025Refill [facility] [address] [place] [address] Amanda Jett CMA Degeneration of intervertebral disc of lumbar region with lower extremity pain 04/06/2025Refill [facility] [address] [place] [address] Risa De Anda CMA Degeneration of intervertebral disc of lumbar region with lower extremity pain 04/06/2025Refill [facility] [address] [place] [address] Arielle Dickens, LAST CODE STRIPER-HYGIENE ASSISTANT 04/05/2025Orders Only [facility] [address] [place] [address] Arielle Dickens, LAST CODE STRIPER-HYGIENE ASSISTANT 04/02/2025Refill [facility] [address] [place] [address] Arielle Dickens, LAST CODE STRIPER-HYGIENE ASSISTANT Degeneration of intervertebral disc of lumbar region with lower extremity pain 02/28/2025Refill [facility] [address] [place] [address] Arielle Dickens, LAST CODE STRIPER-HYGIENE ASSISTANT 02/16/2025Refill [facility] [address] [place] [address] Arielle Dickens, LAST CODE STRIPER-HYGIENE ASSISTANT 02/13/2025Refill [facility] [address] [place] [address] Arielle Dickens, LAST CODE STRIPER-HYGIENE ASSISTANT 02/11/2025 11:40 AM EDTOffice Visit [facility] [address] [place] [address] Arielle Dickens, LAST CODE STRIPER-HYGIENE ASSISTANT Type 2 diabetes mellitus with hyperglycemia, without long-term current use of insulin ([facility]) (Primary Dx); Essential hypertension; Cigarette nicotine dependence without tvqdhtwyedsg97/16/4017Bpyrgb97/03/2025 Refill [facility] [address] [place] [address] Arielle Dickens, LAST CODE STRIPER-HYGIENE ASSISTANT 01/17/2025Refill [facility] [address] [place] [address] Arielle Dickens, LAST CODE STRIPER-HYGIENE ASSISTANT from Last 3 Months Immunizations ImmunizationAdministration DatesNext XgeHPkC61/07/2013Influenza (IM) Preservative Free01/17/2024Influenza, Im Trivalent Sammfpwixepf16/01/2015 Influenza, Injectable, quadrivalent (PF)02/28/2016Influenza, Unspecified 02/28/2016Pneumococcal Conjugate 13-Nqsvjg0802/02/2013Pneumococcal Conjugate 20-kaaqok874Pneumococcal Xelqdtbznnzjkw68/07/2013 Family History Medical HistoryRelationNameCommentsLung cancerBrotherCOPDFatherDiabetesFather Prostate cancerFatherClotting disorderMaternal AuntHeart attackMaternal GrandmotherCOPDMotherHeart attackMotherStrokeMotherColon cancerPaternal GrandfatherBreast cancerNeg HxRelationNameStatusCommentsBrotherFatherMaternal AuntMaternal GrandmotherMotherPaternal Grandfather Social History Tobacco UseTypesPacks/DayYears UsedDateSmoking Tobacco: Every QekSloinlmfuu144.8 Started: 05/12/1987; Last attempted to quit: 03/29/2024Smokeless Tobacco: Never Tobacco Cessation:Ready to Q uit: Not Asked; Counseling Given: Not Answered Comments:Is down to 1/2 PPD since 06/2022 but smoked 1.5 PPD for years Alcohol UseStandard Drinks/WeekCommentsYes0 (1 standard drink = 0.6 oz pure alcohol)OccasionalAHC UtilitiesAnswerDate RecordedIn the past 12 months has the [employer], [employer], oil, or water [employer] threatened to shut off services in your home?No06/02/2024Social Connection and Isolation PanelAnswerDate RecordedIn a typical week, how many times do you talk on the phone with family, friends, or neighbors?More than three times a week01/24/2023How often do you get together with friends or relatives?Twice a week01/24/2023How often do you attend anglican or caodaism services?Never01/24/2023o you belong to any clubs or organizations such as anglican groups, unions, fraternal or athletic groups, or school groups?No 01/24/2023How often do you attend meetings of the clubs or organizations you belong to?Never01/24/2023re you , , , , never , or living with a partner?Keorvrl1201/24/2023UDIT-CAnswerDate RecordedQ1: How often do you have a [...] care, and heating?Not hard at all01/24/2023HQ-2AnswerDate RecordedTotal Nhdrz752Finjordan valley [facility] [place] of Occupational Health - Occupational Stress QuestionnaireAnswerDate [...] household?No01/24/2023 ChildcareAnswerDate RecordedDo problems getting early childhood special educator make it 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 work [...] InformationValueDate RecordedSex Assigned at BirthNot on fileLegal EzdIyuazk49/06/2015 11:50 AM EDTGender IdentityNot on fileSexual OrientationNot on file Last Filed Vital Signs Vital SignReadingTime TakenCommentsBlood Qrcqsbih402/7202/11/2025 11:45 AM EDT Oenhf198502/11/2025 11:45 AM KNPMxbnhfpgcdk16.3 ??C (97.3 ??F)02/11/2025 11:45 AM EDTRespiratory Okja4566 11:45 AM EDTOxygen Vyruwqlrts11%02/11/2025 11:45 AM EDTInhaled Oxygen Concentration--Nwqcex75.5 kg (157 lb 9.6 oz)02/11/2025 11:45 AM CKGVhzczh549.2 cm (5' 1.89 )02/11/2025 11:45 AM EDTBody Mass Index28.93 02/11/2025 11:45 AM EDT Plan of Treatment DateTypeDepartmentCare Team (Latest Contact Info)Pomvwtxssre48/22/2025 1:45 PM ESTOffice Visit [facility] [address] [place] [address] Inder Frankel, [address] [place], [place] [phone] Health MaintenanceDue DateLast DoneCommentsTobacco Uwlrovarpx76/24/1962Colon Cancer Screening 5 Year Lnelemonekcyo82/24/2007RSV ( or age 60+ yrs) (1 - Risk 50-74 years 1-dose series)10/21/2011Zoster (Shingles) Vaccine (1 of 2) 10/21/2011DTaP,Tdap and Td Vaccines (2 - Tdap)COVID-19 Vaccine (3 - season), 12/28/2020Influenza Vaccine /, 02/28/2016, 02/28/2016, Additional history existsMammogram , 04/28/2013, 03/31/2012, Additional history existsDiabetic Ophthalmology Examostponed from 01/27/2023 (Not Indicated) Adult BMI Follow Up Plan/dult BMI Wnhdjxndd08/16/2026 02/11/2025Depression Gkacslpnb51Diabetic Foot Exam02/11/2026 02/11/2025, 08/28/2023, 01/24/2023, Additional history existsTobacco Screening Statin Use: Qhykxurw24Pap Smear Discontinued Medical Devices Not on file Procedures Procedure NamePriorityDate/TimeAssociated DiagnosisCommentsPOCT HEMOGLOBIN A1C Tikpipy0602/11/2025 12:36 PM EDT Type 2 diabetes mellitus with hyperglycemia, without long-term current use of insulin ([facility]) MAMM SCREENING BILATERAL W UWVFjtwbxr65/17/2025 1:07 PM EST Encounter for screening mammogram for malignant neoplasm of breast HM DIABETES EYE MDKAZasbeup63/01/2022from Last 3 Months or Most Recently Relevant to Health Maintenance Results * POCT Hemoglobin A1c (02/11/2025 12:36 PM EDT)ComponentValueRef RangeTest MethodAnalysis TimePerformed AtPathologist SignatureExternal Poct Hgb A1C6.84 - 7 %MANUALLY TRANSCRIBED RESULTSSpecimen (Source)Anatomical Location / LateralityCollection Method / VolumeCollection TimeReceived TimeBlood 02/11/2025 12:36 PM EDT Narrative Authorizing ProviderResult TypeResult StatusArielle Dickens LAST CODE STRIPER-[facility]OD HOSPITALPOINT OF CARE TEST ORDERABLESFinal ResultPerforming OrganizationAddressCity/State/ZIP Code Phone Number MANUALLY TRANSCRIBED RESULTS * Mammography screening bilateral with CAD (05/15/2024 1:07 PM EST)Anatomical RegionLateralityModalityBreastBilateralMammographySpecimen (Source)Anatomical Location / LateralityCollection Method / VolumeCollection TimeReceived Time 05/18/2024 10:05 AM EST Narrative 05/18/2024 10:10 AM EST KECIA COPELAND 1960 [id number] EXAM: MAMM SCREENING BILATERAL W CAD, 05/15/2024 12:47 PM CLINICAL INDICATIONS: Screening, Encounter for screening mammogram for malignant neoplasm of breast COMPARISON: Mammograms dated 04/28/2013, 04/27/2012 TECHNIQUE: Bilateral digital tomosynthesis MLO and CC views of the breasts were obtained, with creation of synthetic 2D views. Computer aided detection was utilized. FINDINGS: The breasts are almost entirely fatty. There are no suspicious masses, calcifications, or areas of architectural distortion. IMPRESSION: No mammographic evidence of malignancy. BI-RADS: BI-RADS 1 - Negative RECOMMENDATION: ??Routine screening mammogram in 1 year. RISK ASSESSMENT: TC Lifetime risk: 2.5%. The patient's reported personal and family medical history was used calculate their Tyrer-Cuzick lifetime risk of malignancy. Scores less than 20% are not considered high risk per ACR guidelines and patient should continue with the above recommendation. Finalized by Mariann Ulloa MD on 05/18/2024 10:10 AM 1 a MAMM 1 YR FDA Accredited Performing Facility: [facility] [address] [facility] [id number] Procedure Note Mariann Ulloa MD - 05/18/2024 KECIA COPELAND 1960 [id number] EXAM: MAMM SCREENING BILATERAL W CAD, 05/15/2024 12:47 PM CLINICAL INDICATIONS: Screening, Encounter for screening mammogram formalignant neoplasm of breast COMPARISON: Mammograms dated 04/28/2013, 04/27/2012 TECHNIQUE: Bilateral digital tomosynthesis MLO and CC views of the breastswere obtained, with creation of synthetic 2D views. Computer aideddetection was utilized. FINDINGS: The breasts are almost entirely fatty. There are no suspicious masses, calcifications, or areas of architectural distortion. IMPRESSION: No mammographic evidence of malignancy. BI-RADS: BI-RADS 1 - Negative RECOMMENDATION: Routine screening mammogram in 1 year. RISK ASSESSMENT: TC Lifetime risk: 2.5%. The patient's reported personal and family medical history was usedcalculate their [facility] Hospital[facility] lifetime risk of malignancy. Scores less than20% are not considered high risk per ACR guidelines and patient shouldcontinue with the above recommendation. Finalized by Mariann Ulloa MD on 05/18/2024 10:10 AM 1 a MAMM 1 YR FDA Accredited Performing Facility: [facility] [address] [facility] [address] Authorizing ProviderResult TypeResult StatusArielle Dickens LAST CODE STRIPER-CNPIMG MAMMOGRAPHY ORDERABLESFinal Result * DIABETES EYE EXAM (01/27/2022) Narrative Authorizing ProviderResult TypeResult StatusNot In System Ref ProvHEALTH MAINTENANCEFinal ResultPerforming OrganizationAddressCity/State/ZIP CodePhone Number MANUALLY TRANSCRIBED RESULTS from Last 3 Months or Most Recently Relevant to Health Maintenance Insurance * Guarantor: Kecia CopelandAccount TypeRelation to PatientDate of PhoneBilling AddressPersonal/YmlxvxFohi14[birth year][address] [address] Care Teams Team MemberRelationshipSpecialtyStart DateEnd Date Arielle Dickens APRN-HYGIENE ASSISTANT [address] [place] [address] [facility]12/14/24
--- OUTSIDE RECORDS SUMMARY | 2025-04-15 11:43 | XMS_ITS | Encounter Summary ---
Author Organization [facility] HospitalShoutOut Wiper Sys tem Address [id number] [address] [place] [address] Care Team Providers Care Maid Supervisor Name Role Phone Arielle Dickens PRINT SUPPORT SPECIALIST-VIBRATORY PILE DRIVER Primary Care Provider + Reason for Visit * ReasonCommentsMed Refill Encounter Details DateTypeDepartmentCare Team (Latest Contact Info)Qubyayehznf78/09/2025Refill [facility] [address] [place] [address] Arielle Dickens, PRINT SUPPORT SPECIALIST-VIBRATORY PILE DRIVER [address] [place] [address] Social History Tobacco UseTypesPacks/DayYears UsedDateSmoking Tobacco: Every PefEznzvlfpxs979.8 Started: 05/12/1987; Last attempted to quit: 03/29/2024Smokeless [...] relatives?Twice a week01/24/2023How often do you attend lutheran or rastafarian services?Never01/24/2023o you belong to any clubs or organizations such as lutheran groups, unions, fraternal or athletic groups, or school groups?No 01/24/2023How often do you attend meetings of the clubs or organizations you belong to?Never01/24/2023re you , , , , never , or living with a partner?Ceymzxm2401/24/2023UDIT-CAnswerDate RecordedQ1: How often do you have a [...] care, and heating?Not hard at all01/24/2023HQ-2AnswerDate RecordedTotal Mdpcs330Finacadia healthcare [place] of Occupational Health - Occupational Stress QuestionnaireAnswerDate [...] a household?No01/24/2023 ChildcareAnswerDate RecordedDo problems getting children's author make it 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 work [...] InformationValueDate RecordedSex Assigned at BirthNot on fileLegal WubIvssfn53/06/2015 11:50 AM EDTGender IdentityNot on fileSexual OrientationNot on filedocumented as of this encounter Plan of Treatment DateTypeDepartmentCare Team (Latest Contact Info)Hgnwodhspjn44/22/2025 1:45 PM ESTOffice Visit [facility] [address] [place] [address] Inder Frankel, DO [address] [facility] [place] [address] documented as of this encounter Visit Diagnoses Not on filedocumented in this encounter Additional Health Concerns AssessmentNoted TimePHQ-9 Depression Total Score: 11:45 AM EDTA Body Mass Index follow-up plan has been documented for the ywrnaix4410/22/2024 4:47 PM EDTdocumented as of this encounter Care Teams Team MemberRelationshipSpecialtyStart DateEnd Date Arielle Dickens, PRINT SUPPORT SPECIALIST-VIBRATORY PILE DRIVER [address] [facility] [place] [address] PCP - GeneralFamily Medicine12/14/24documented as of this encounter
--- NOTE | 2025-04-15 11:54 | ED.LOWEXI1 ---
HPI HPI - Extremity Injury (Lower) General Chief Complaint: Extremity Injury, Lower Stated Complaint: LOWER EXTREMITY PAIN Time Seen by Provider: 04/15/25 11:02 Source: patient Mode of arrival: walk-in Limitations: no limitations History of Present Illness HPI Narrative: The patient is a 63 years old female is coming to the ER with the back pain that is radiating to the buttock area the patient mentioned that sometimes she feels numbness there is no incontinence of urine or stool and the patient is standing walking with no difficulty while I am providing the history No history of weakness or fall or trauma. The patient have a history of peripheral neuropathy. She mentioned that her work is physical and she is on her feet all day Related Data Home Medications ?Medication ?Instructions ?Recorded ?Confirmed albuterol sulfate 2.5 mg/3 mL 2.5 mg inhalation Q4H PRN 05/21/23 05/05/24 (0.083 %) solution for nebulization shortness of breath or wheezing atorvastatin 10 mg tablet 10 mg PO DAILY 05/21/23 05/05/24 budesonide-formoterol HFA 160 inhalation 05/21/23 mcg-4.5 mcg/actuation aerosol inhaler calcium 500 mg (as 1 tab PO DAILY 05/21/23 05/05/24 carbonate)-vitamin D3 5 mcg (200 unit) tablet (Oysco 500/D) methimazole 10 mg tablet 10 mg PO DAILY 05/21/23 05/05/24 montelukast 10 mg tablet 10 mg PO DAILY 05/21/23 05/05/24 dapagliflozin propanediol 10 mg 10 mg PO DAILY 05/05/24 05/05/24 tablet fluticasone fur. 200 mcg-umeclid 1 inh inhalation QAM 05/05/24 05/05/24 62.5 mcg-vilant 25 mcg inhalat.powder (Trelegy Ellipta) lisinopril 40 mg tablet 40 mg PO DAILY 05/05/24 05/05/24 metformin 500 mg tablet,extended 500 mg PO BID 05/05/24 05/05/24 release 24 hr pantoprazole 40 mg tablet,delayed 40 mg PO DAILY 05/05/24 05/05/24 release Previous Rx's ?Medication ?Instructions ?Recorded diclofenac sodium 75 mg 75 mg PO BID PRN pain #14 tabs 04/15/25 tablet,delayed release orphenadrine citrate 100 mg 100 mg PO BID PRN muscle spasm #14 04/15/25 tablet,extended release tabs Allergies Allergy/AdvReac Type Severity Reaction Status Date / Time No Known Drug Allergies Allergy Verified 04/15/25 10:20 Opioid HPI Opioid Management Most Recent Pain and Opioid Data: Last Pain Scale 10 04/15/25, 11:57 Last MAR Pain Assessment 04/15/25, 11:57 Review of Systems ROS Status of ROS 10 or more systems reviewed and unremarkable except as noted in history and below [facility] Medical History (Updated 04/15/25 @ 12:15 by Leilani Loera MD) High cholesterol ?E78.00 - Pure hypercholesterolemia, unspecified (ICD-10) HTN (hypertension) ?I10 - Essential (primary) hypertension (ICD-10) Smoker ?F17.200 - Nicotine dependence, unspecified, uncomplicated (ICD-10) COPD (chronic obstructive pulmonary disease) ?J44.9 - Chronic obstructive pulmonary disease, unspecified (ICD-10) 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 General: Well-appearing and in no apparent distress. Skin: Warm, dry, no pallor noted. No rash. Head: Normocephalic, atraumatic. Neck: Supple, non-tender. Eye: Pupils are equal, round and EOMI. No scleral icterus. Ears, Nose, Mouth, and Throat: TM are clear, no nasal mucosal hypertrophy. Oral mucosa is moist, no posterior oropharynx erythema, uvula is mid-line Cardiovascular: Regular Rate and Rhythm without murmur, gallop or rub. Respiratory: No accessory muscle use or respiratory distress. Lungs are clear to auscultation, no wheezing, rales or rhonchi Chest Wall: no tenderness Back: No midline thoracic or lumbar vertebral tenderness. No CVA tenderness Musculoskeletal: There is no intervertebral line tenderness at the lumbar level the sacral tenderness bilaterally GI: Abdomen is soft, non-distended. Normal bowel sounds. No masses appreciated. No tenderness to palpation. No rebound, guarding, or rigidity noted. Neurological: A&O x4. No cranial nerve dysfunction observed. No truncal ataxia. Moves all extremities. Sensation intact. Psychiatric: Cooperative and interactive. Normal mood and affect. Constitutional Vital Signs, click to edit/add: Last Vital Signs Temp 99.1 F 04/15/25 10:20 Pulse 92 H 04/15/25 10:20 Resp 15 04/15/25 10:20 BP 145/109 H 04/15/25 10:20 Pulse Ox 98 04/15/25 10:20 Course Vital Signs Vital signs: Vital Signs Temperature 99.1 F 04/15/25 10:20 Pulse Rate 92 H 04/15/25 10:20 Respiratory Rate 15 04/15/25 10:20 Blood Pressure 145/109 H 04/15/25 10:20 Pulse Oximetry 98 04/15/25 10:20 Temperature 99.1 F 04/15/25 10:20 Pulse Rate 92 H 04/15/25 10:20 Respiratory Rate 15 04/15/25 10:20 Blood Pressure 145/109 H 04/15/25 10:20 Pulse Oximetry 98 04/15/25 10:20 MDM - Extremity Injury (Lower) MDM Narrative Medical decision making narrative: The patient's symptoms of back pain although the patient was providing all the history where she is standing up and walking showing no acute pathology on exam. She did mention that she have back pain that radiate to the buttock area There was no incontinence of urine or stool there was no weakness and the patient did not have any history of fall or trauma and no suspicion of alarming symptoms After being provided with Toradol she said that she was feeling much better She was taking gabapentin which her primary care started her on but she seems to be upset that she does not have anything else for pain The patient was feeling much better after being treated with Toradol she is going to follow-up with her primary care within few days and she was also provided Norflex The patient does not have any alarming symptoms at the moment but she will come back in case of any new symptoms or concerns The patient to follow-up with the primary care within 2 to 3 days and to come back to the ER in case of any worsening of the current symptoms or any new symptoms or concerns Discharge Plan Discharge Chief Complaint: Extremity Injury, Lower Clinical Impression: Back pain Patient Disposition: Home, Self-Care Time of Disposition Decision: 12:15 Condition: Good Prescriptions / Home Meds: New orphenadrine citrate 100 mg tablet extended release 100 mg PO BID PRN (Reason: muscle spasm) Qty: 14 0RF diclofenac sodium 75 mg tablet,delayed release (DR/EC) 75 mg PO BID PRN (Reason: pain) Qty: 14 0RF No Action albuterol sulfate 2.5 mg /3 mL (0.083 %) solution for nebulization 2.5 mg inhalation Q4H PRN (Reason: shortness of breath or wheezing) atorvastatin 10 mg tablet 10 mg PO DAILY montelukast 10 mg tablet 10 mg PO DAILY methimazole 10 mg tablet 10 mg PO DAILY calcium carbonate-vitamin D3 [Oysco 500/D] 500 mg-5 mcg (200 unit) tablet 1 tab PO DAILY budesonide-formoterol 160-4.5 mcg/actuation HFA aerosol inhaler INHALATION dapagliflozin propanediol 10 mg tablet 10 mg PO DAILY Trelegy Ellipta 200-62.5-25 mcg blister with device 1 inh INHALATION QAM lisinopril 40 mg tablet 40 mg PO DAILY metformin 500 mg tablet extended release 24 hr 500 mg PO BID pantoprazole 40 mg tablet,delayed release (DR/EC) 40 mg PO DAILY Print Language: Yakut Instructions: Back Pain (ED) Additional Instructions: Please make sure you take all the medication with food not on empty stomach Referrals: EVANGELIST SALEEM [Primary Care Provider, Family Practice] - 1 week Discharge Date/Time: 04/15/25 12:25
[2025-04-15] MEDS: ORPHENADRINE 60 MG/2 ML VIAL IM (11:56)
[2025-04-15] MEDS: KETOROLAC TROMETHAMINE 30 MG/ML VIAL IM (11:57)
--- NOTE | 2025-04-15 12:24 | PC.NURSE ---
pt c/o lower back pain that radiates to legs.
== END 2025-04-15 12:25 | disposition home or self-care (01) ==
PROVIDERS: Emergency Provider Emergency Medicine; PCP Family Medicine
DX: M54.9 Dorsalgia, unspecified (principal); G62.9 Polyneuropathy, unspecified; F17.200 Nicotine dependence, unspecified, uncomplicated
CPT/HCPCS: 96372; 99284; J1885; J2360